=== PATIENT | female | born 1945 | race Caucasian/White ===

== ENCOUNTER 2021-07-01 04:09 | Emergency (ER) | payer MEDICARE, SELFPAY ==
[~2021-07-01] VITALS: Ht 167.6 cm; Wt 57.6 kg
[2021-07-01 04:09] VITALS: BP_SYST 160
[2021-07-01] MEDS ORDERED: NACL 0.9% 1,000 ML IV ONE (05:45)
[2021-07-01] MEDS ORDERED: IOHEXOL 350 mgI/mL, 150 ML INFUS..BTL IV ONE (05:47)
[2021-07-01 05:58] LABS: BASOPHILS # (AUTO) 0.1 K/uL (0.0-0.2); BASOPHILS % (AUTO) 0.3 % (0.0-2.0); EOSINOPHILS % (AUTO) 0.1 % (0.0-4.0); HEMATOCRIT 34.3 % (36-48); HEMOGLOBIN 11.5 g/dL (12.0-16.0); LYMPHOCYTES % (AUTO) 5.7 % (20.5-51.5); MEAN CORPUSCULAR HEMOGLOBIN 31 pg (27-31); MEAN CORPUSCULAR HGB CONC 34 % (32-36); MEAN CORPUSCULAR VOLUME 92 fL (79.0-98.0); MONOCYTES # (AUTO) 0.6 K/uL (0.0-1.0); MONOCYTES % (AUTO) 3.1 % (1.7-9.3); NEUTROPHILS # (AUTO) 16.2 K/uL (1.8-7.7); NEUTROPHILS % (AUTO) 90.8 % (40.0-70.0); PLATELET COUNT (AUTO) 259 K/uL (130-430); RED BLOOD CELL COUNT(AUTO) 3.73 MIL/uL (4.2-6.2); RED CELL DISTRIBUTION WIDTH 13.4 % (9.0-15.0); WHITE BLOOD COUNT (AUTO) 17.8 K/uL (4.8-10.8)
[2021-07-01 06:28] LABS: ANION GAP 14 (5-15); CHLORIDE 105 mmol/L (98-107); CREATININE 1.37 mg/dL (0.55-1.30); GLUCOSE 191 mg/dL (70-99); POTASSIUM 3.8 mmol/L (3.5-5.1); SODIUM SERUM 143 mmol/L (136-145); UREA NITROGEN, BLOOD 31 mg/dL (8-21)
[2021-07-01 06:32] LABS: PROTHROMBIN TIME 10.3 SECS (9.5-12.5)
[2021-07-01 06:37] LABS: ALANINE AMINOTRANSFERASE 23 U/L (12-78); ALBUMIN 3.5 g/dL (3.4-4.8); ASPARTATE AMINOTRANSFERASE 19 U/L (10-37); LIPASE 637 U/L (73-393); TOTAL BILIRUBIN 0.3 mg/dL (0.0-1.0)
[2021-07-01] MEDS ORDERED: NACL 0.9% 700 ML IV ONE (06:45)
[2021-07-01] MEDS ORDERED: PIPERACILLIN/TAZO 4.5 GM in NS 100 ML IV ONE (06:45)
[2021-07-01] MEDS ORDERED: ASPIRIN 325 MG TABLET PO ONE (06:45)
[2021-07-01] MEDS ORDERED: PIPERACILLIN/TAZOBACTAM 4.5 GM/VIAL (ZOSYN) IV ONE (07:05)
[2021-07-01 07:27] LABS: BILIRUBIN,URINE NEGATIVE (NEGATIVE); BLOOD, URINE NEGATIVE (NEGATIVE); CLARITY/URINE CLEAR (CLEAR); COLOR,URINE YELLOW (YELLOW); GLUCOSE,URINE NEGATIVE (NEGATIVE); KETONES,URINE NEGATIVE (NEGATIVE); LEUKOCYTE ESTERASE ,URINE NEGATIVE (NEGATIVE); NITRITE, URINE NEGATIVE (NEGATIVE); PH,URINE 5.5 (5.0-8.0); PROTEIN URINE NEGATIVE (NEGATIVE); UROBILINOGEN,URINE 0.2 (0.2-1.0)
[2021-07-01] MEDS ORDERED: MORPHINE 2 MG/ML INJ. SYRINGE IVP ONE (08:30)
[2021-07-01 11:12] VITALS: BP_SYST 162
== END 2021-07-01 11:14 | disposition short-term general hospital (02) ==
LOC: SED 04:09
DX: K66.1 Hemoperitoneum (principal); N63.0 Unspecified lump in unspecified breast; Z20.822 Contact with and (suspected) exposure to COVID-19
CPT/HCPCS: 36415; 71045; 72191; 74175; 74176; 76376; 80053; 81003; 83605; 83690; 84484; 85025; 85610; 85730; 86886; 86900; 86901; 87040; 87426; 93005; 96365; 96375; 99291; J2270; J2543; J7030; Q9967

== ENCOUNTER 2024-01-02 21:46 | Emergency (ER) | payer MEDICARE ==
[~2024-01-02] VITALS: Ht 162.6 cm; Wt 45.4 kg
[2024-01-02 22:09] VITALS: BP_SYST 148; PULSE 78; RESP 20; TEMP 98.1; O2SAT 95
[2024-01-03 00:11] VITALS: BP_SYST 148; PULSE 78; RESP 20; TEMP 98.1; O2SAT 95
== END 2024-01-03 00:10 | disposition home or self-care (01) ==
LOC: SED 21:46
DX: S60.221A Contusion of right hand, initial encounter (principal); W01.0XXA Fall on same level from slipping, tripping and stumbling without subsequent striking against object, initial encounter; Y93.89 Activity, other specified; Y92.89 Other specified places as the place of occurrence of the external cause; Y99.8 Other external cause status
CPT/HCPCS: 99283